=== PATIENT | female | born 1930 | race Caucasian/White ===

== ENCOUNTER 2018-04-25 15:29 | Inpatient (IN) | payer OTHER ==
[~2018-04-25] VITALS: Ht 162.6 cm; Wt 59.5 kg
[2018-04-25] MEDS ORDERED: SODIUM CHLORIDE 0.9% 1,000 ML IV ONE (15:45)
[2018-04-25 16:26] LABS: Basophils # (auto) 0.1 uL; Eosinophils # (auto) 0.2 uL; Monocytes # (auto) 0.6 uL
[2018-04-25 16:27] LABS: Basophils % (auto) 1.2 % (0.0-2.0); Eosinophils % (auto) 2.3 % (0.0-7.0); Hematocrit 17.4 % (36.0-46.0); Lymphocytes # (auto) 1.1 uL; Lymphocytes % (auto) 14.9 % (10.0-50.0); Mean Corpuscular Hemoglobin 28.9 pg (28.0-32.0); Mean Corpuscular Hgb Conc. 32.5 g/dL (32.0-36.0); Mean Corpuscular Volume 88.9 fL (80.0-100.0); Monocytes % (auto) 7.7 % (0.0-12.0); Neutrophils # (auto) 5.4 uL; Neutrophils % (auto) 73.9 % (37.0-80.0); Platelet Count (auto) 218 10^3/uL (140-450); Red Blood Cells 1.95 10^6/uL (4.0-5.20); White Blood Cell 7.3 10^3/uL (4.4-10.8)
[2018-04-25 16:35] LABS: Albumin 2.2 g/dL (3.4-5.0); Anion Gap 11 (5-15); Blood Urea Nitrogen 60 mg/dL (7-18); Calcium 7.1 mg/dL (8.5-10.1); Carbon Dioxide 20 mmol/L (21-32); Chloride 111 mmol/L (98-107); Glucose 109 mg/dL (74-106); Potassium 4.3 mmol/L (3.5-5.1); Sodium 142 mmol/L (136-145)
[2018-04-25 16:36] LABS: INR 1.09 (0.9-1.15); Magnesium 1.9 mg/dL (1.6-2.6); Prothrombin Time 11.6 sec (9.27-12.13)
[2018-04-25 16:37] LABS: Alanine Aminotransferase 11 U/L (13-56); Aspartate Aminotransferase 11 U/L (15-37); GFR African American 67 mL/min; GFR Non-African American 55 mL/min
[2018-04-25 16:42] LABS: Alkaline Phosphatase 55 U/L (45-117); Bilirubin, Total 0.2 mg/dL (0.2-1.0); Total Protein 5.3 g/dL (6.4-8.2)
[2018-04-25 16:54] LABS: Hemoglobin 5.6 g/dL (12.2-16.2)
[2018-04-25 20:15] VITALS: BP 127/53
[2018-04-25 20:30] VITALS: BP 142/60
[2018-04-25 22:10] VITALS: BP 158/86
[2018-04-25 22:30] VITALS: BP 179/92
[2018-04-25] MEDS ORDERED: SOD CHL 0.45% 1,000 ML IV ONE (23:00)
[2018-04-25] MEDS ORDERED: NITROGLYCERIN 0.4 MG SL TAB SL PRN (23:00)
[2018-04-25] MEDS ORDERED: MORPHINE SULFATE 8mg/ml INJ SDV IV PRN (23:00)
[2018-04-25] MEDS ORDERED: LORazepam 0.5 MG TAB PO ONE (23:00)
[2018-04-26] VITALS (8 sets, daily range): BP systolic 132–161; BP diastolic 55–72
[2018-04-26 06:51] LABS: Basophils # (auto) 0.1 uL; Basophils % (auto) 0.4 % (0.0-2.0); Eosinophils # (auto) 0.1 uL; Eosinophils % (auto) 0.5 % (0.0-7.0); Hematocrit 30.1 % (36.0-46.0); Hemoglobin 9.8 g/dL (12.2-16.2); Lymphocytes # (auto) 0.9 uL; Lymphocytes % (auto) 5.9 % (10.0-50.0); Mean Corpuscular Hgb Conc. 32.7 g/dL (32.0-36.0); Mean Corpuscular Volume 88.7 fL (80.0-100.0); Monocytes # (auto) 0.9 uL; Monocytes % (auto) 5.9 % (0.0-12.0); Neutrophils # (auto) 12.7 uL; Neutrophils % (auto) 87.3 % (37.0-80.0); Platelet Count (auto) 160 10^3/uL (140-450); Red Blood Cells 3.39 10^6/uL (4.0-5.20); White Blood Cell 14.6 10^3/uL (4.4-10.8)
[2018-04-26 07:04] LABS: Potassium 3.9 mmol/L (3.5-5.1)
[2018-04-26 07:17] LABS: Albumin 2.5 g/dL (3.4-5.0); BUN/Creatinine Ratio 55.4; Calcium 7.8 mg/dL (8.5-10.1)
[2018-04-26 07:20] LABS: Bilirubin, Total 0.5 mg/dL (0.2-1.0); Total Protein 5.5 g/dL (6.4-8.2)
[2018-04-26] MEDS ORDERED: PANTOPRAZOLE 40 MG/10 ML VIAL IV SCH (10:00)
[2018-04-26] MEDS: PANTOPRAZOLE 80 MG in SODIUM CHL 0.9% 60 ML IV SCH ×2 (14:15→22:00)
[2018-04-26] MEDS ORDERED: PANTOPRAZOLE 40 MG/10 ML VIAL IV ONE (15:00)
[2018-04-26] MEDS ORDERED: SODIUM CHLORIDE LOCK 10 ML ONE (15:33)
[2018-04-26] MEDS ORDERED: LIDOCAINE VISCOUS 2% 15ML UD ONE (15:33)
[2018-04-26] MEDS ORDERED: fentaNYL CITRATE 100 MCG/2 ML VL ONE (15:33)
[2018-04-26] MEDS ORDERED: diphenhdrAMINE HCL 50 MG/1 ML VL ONE (15:33)
[2018-04-26] MEDS: MIDAZOLAM HCL 5 MG/ML-1ML VIAL ONE ×2 (16:01→16:07)
[2018-04-27 05:00] VITALS: BP 131/53
[2018-04-27 06:18] LABS: Hematocrit 26.7 % (36.0-46.0); Hemoglobin 9.1 g/dL (12.2-16.2)
[2018-04-27 08:00] VITALS: BP 130/64
[2018-04-27] MEDS ORDERED: PANT40TA2 PO (10:26)
[2018-04-27 12:00] VITALS: BP 160/74
== END 2018-04-27 13:39 | disposition home or self-care (01) | DRG 377 ==
LOC: EDBD 15:29 → ER 15:29 → TELE 15:30 → TELE-WESTW 23:53
PROVIDERS: ADMIT Internal Medicine; ATTEND Internal Medicine
PROC: 30233N1 Transfusion of Nonautologous Red Blood Cells into Peripheral Vein, Percutaneous Approach (ICD-10-PCS; 2018-04-25)
PROC: 0DB68ZX Excision of Stomach, Via Natural or Artificial Opening Endoscopic, Diagnostic (ICD-10-PCS; principal; 2018-04-26 15:55)
DX: K26.4 Chronic or unspecified duodenal ulcer with hemorrhage (principal); E43 Unspecified severe protein-calorie malnutrition; K56.49 Other impaction of intestine; K80.20 Calculus of gallbladder without cholecystitis without obstruction; Z60.2 Problems related to living alone; D50.0 Iron deficiency anemia secondary to blood loss (chronic); I10 Essential (primary) hypertension; I70.0 Atherosclerosis of aorta; I70.8 Atherosclerosis of other arteries; J44.9 Chronic obstructive pulmonary disease, unspecified; J84.10 Pulmonary fibrosis, unspecified; J98.4 Other disorders of lung; K44.9 Diaphragmatic hernia without obstruction or gangrene; K57.30 Diverticulosis of large intestine without perforation or abscess without bleeding; K59.01 Slow transit constipation; K92.0 Hematemesis; K57.31 Diverticulosis of large intestine without perforation or abscess with bleeding; K29.71 Gastritis, unspecified, with bleeding; Z82.49 Family history of ischemic heart disease and other diseases of the circulatory system
CPT/HCPCS: 36415; 36430; 71045; 74176; 80053; 83690; 83735; 84443; 84484; 85014; 85018; 85025; 85610; 85730; 86850; 86900; 86901; 86920; 87081; 93005; 96360; C9113; J2250